=== PATIENT | male | born 1975 | race Native Hawaiian/Other Pacific Islander ===

== ENCOUNTER 2019-07-19 10:21 | Outpatient (CLI) | payer OTHER | END 2019-07-19 19:28 | disposition home or self-care (01) | LOC: RAD 10:21 | DX: R10.84 Generalized abdominal pain (principal) ==

== ENCOUNTER 2019-07-19 14:44 | Outpatient (CLI) | payer OTHER | END 2019-07-19 19:30 | disposition home or self-care (01) | LOC: LABW 14:44 | DX: R63.4 Abnormal weight loss (principal); K52.9 Noninfective gastroenteritis and colitis, unspecified | CPT/HCPCS: 82272; 83630; 87015; 87045; 87324; 87328; 87329; 87449; 87507; 87899 ==

== ENCOUNTER 2019-07-20 09:40 | Outpatient (CLI) | payer OTHER ==
[2019-07-20 10:25] LABS: PLATELET COUNT 286 K/uL (142-355)
[2019-07-20 10:43] LABS: POTASSIUM 4.4 mmol/L (3.6-5.2)
== END 2019-07-20 22:58 | disposition home or self-care (01) ==
LOC: LAB 09:40
PROVIDERS: Internal Medicine
DX: R63.4 Abnormal weight loss (principal); K52.9 Noninfective gastroenteritis and colitis, unspecified
CPT/HCPCS: 36415; 80053; 81000; 84439; 84443; 85027

== ENCOUNTER 2019-08-09 08:00 | Outpatient (CLI) | payer OTHER | END 2019-08-09 20:28 | disposition home or self-care (01) | LOC: CT 08:00 | DX: R10.84 Generalized abdominal pain (principal) | CPT/HCPCS: Q9963 ==

== ENCOUNTER 2019-09-04 08:41 | Outpatient (CLI) | payer OTHER ==
[2019-09-04 09:58] LABS: PLATELET COUNT 275 K/uL (142-355)
[2019-09-04 10:12] LABS: POTASSIUM 4.7 mmol/L (3.6-5.2)
== END 2019-09-04 20:56 | disposition home or self-care (01) ==
LOC: LABW 08:41
PROVIDERS: Internal Medicine Gastroenterology
DX: R10.84 Generalized abdominal pain (principal); R94.5 Abnormal results of liver function studies
CPT/HCPCS: 36415; 80053; 80074; 82150; 82248; 82390; 82525; 82728; 83516; 83540; 83550; 83690; 84466; 85027; 85610; 86038

== ENCOUNTER 2019-11-13 10:21 | Day surgery (SDC) | payer OTHER ==
[~2019-11-13] VITALS: Ht 30.5 cm; Wt 0.5 kg
== END 2019-11-13 14:36 | disposition home or self-care (01) ==
LOC: OR 10:21 → EDSTATUS 11-15 13:19
PROC: 0DB68ZZ Excision of Stomach, Via Natural or Artificial Opening Endoscopic (ICD-10-PCS; principal; 2019-11-13)
PROC: 0D738ZZ Dilation of Lower Esophagus, Via Natural or Artificial Opening Endoscopic (ICD-10-PCS; 2019-11-13)
DX: K29.50 Unspecified chronic gastritis without bleeding (principal); K21.0 Gastro-esophageal reflux disease with esophagitis; K22.2 Esophageal obstruction; K29.80 Duodenitis without bleeding; R13.19 Other dysphagia; R10.13 Epigastric pain; R11.2 Nausea with vomiting, unspecified
CPT/HCPCS: J2704

== ENCOUNTER 2019-12-04 08:06 | Outpatient (CLI) | payer OTHER | END 2019-12-04 19:42 | disposition home or self-care (01) | LOC: LABW 08:06 | DX: R94.5 Abnormal results of liver function studies (principal) ==

== ENCOUNTER 2020-01-10 07:40 | Outpatient (CLI) | payer OTHER | END 2020-01-10 23:49 | disposition home or self-care (01) | LOC: CT 07:40 | DX: R10.32 Left lower quadrant pain (principal) ==